=== PATIENT | male | born 1955 | race Caucasian/White ===

== ENCOUNTER 2023-06-19 19:16 | Emergency (ER) | payer MEDICARE, MEDICAID ==
[~2023-06-19] VITALS: Ht 175.3 cm; Wt 75.0 kg
[2023-06-19 20:25] LABS: BASOPHILS % 0.8 % (0.0-2.0); EOSINOPHILS % 2.3 % (0.0-5.0); HEMATOCRIT. 26.1 % (42.0-52.0); HEMOGLOBIN. 8.7 g/dL (14.0-18.0); LYMPHOCYTES % 5.8 % (20.0-50.0); MEAN CORPUSCULAR HEMOGLOBIN 31.3 pg (28.0-32.0); MEAN CORPUSCULAR HGB CONC 33.1 g/dL (31.0-37.0); MEAN CORPUSCULAR VOLUME 94.6 fL (80.0-94.0); MEAN PLATELET VOLUME 6.8 fl (7.4-10.4); MONOCYTES % 7.4 % (2.0-8.0); NEUTROPHILS % 83.7 % (40.0-76.0); PLATELET 396 x1000/uL (130-400); RED BLOOD CELL COUNT 2.76 mill/uL (4.7-6.1); RED CELL DISTRIBUTION WIDTH 17.5 % (11.6-14.6); WHITE BLOOD COUNT 8.7 x1000/uL (4.5-11.0)
[2023-06-19 20:28] LABS: DIFFERENTIAL COMMENT 1
[2023-06-19 20:33] VITALS: BP_SYST 88; PULSE 84; RESP 18; TEMP 98.1; O2SAT 95
[2023-06-19 20:49] LABS: ALANINE AMINOTRANSFERASE < 7 IU/L (10-49); ALBUMIN 3.9 g/dL (3.2-4.8); ASPARTATE AMINOTRANSFERASE 17 IU/L (<34); BILIRUBIN TOTAL 0.3 mg/dL (0.1-1.0); CALCIUM 9.2 mg/dL (8.7-10.4); CARBON DIOXIDE 30 mEq/L (21-32); CHLORIDE 98 mEq/L (98-107); CREATININE 0.7 mg/dL (0.6-1.3); GLUCOSE 118 mg/dL (70-105); PROTEIN TOTAL 7.6 g/dL (6.0-8.3); SODIUM 131 mEq/L (136-145); UREA NITROGEN BLOOD 28 mg/dL (9-23)
[2023-06-19 20:50] LABS: ETHANOL BLOOD < 10 mg/dL (<10)
[2023-06-19 21:34] LABS: TROPONIN I HIGH SENSITIVITY 20 ng/L (3.0-53)
== END 2023-06-19 22:00 | disposition left against medical advice (07) ==
LOC: ER 19:16
DX: R07.89 Other chest pain (principal); R60.0 Localized edema; I50.9 Heart failure, unspecified
CPT/HCPCS: 36415; 80053; 80320; 83880; 84484; 85025; 99283; G0480